=== PATIENT | female | born 1965 | race Two or more races ===

== ENCOUNTER 2024-05-22 16:42 | Emergency (ER) | payer BC, OTHER ==
[~2024-05-22] VITALS: Ht 165.1 cm; Wt 73.0 kg
[2024-05-22 17:30] LABS: Basophils # (auto) 0 10 ^3/uL (0-0.2); Basophils % (auto) 0.4 % (0.0-2.0); Eosinophils # (auto) 0.1 10 ^3/uL (0-0.8); Hematocrit 51.3 % (36.0-46.0); Hemoglobin 17.5 g/dL (12.2-16.2); Lymphocytes # (auto) 3.9 10 ^3/uL (0.4-5.4); Lymphocytes % (auto) 32.1 % (10.0-50.0); Mean Corpuscular Hemoglobin 30.1 pg (28.0-32.0); Mean Corpuscular Volume 88.5 fL (80.0-100.0); Monocytes % (auto) 8.4 % (0.0-12.0); Neutrophils % (auto) 58.1 % (37.0-80.0); Nucleated Red Blood Cells % 0.1 %; Platelet Count (auto) 375 10^3/uL (140-450); Red Cell Distribution Width 13.5 % (11.8-14.3); White Blood Cell 12.1 10^3/uL (4.4-10.8)
[2024-05-22 17:49] LABS: Alanine Aminotransferase 58 U/L (7-40); Albumin 5.3 g/dL (3.2-4.8); Alkaline Phosphatase 111 U/L (46-116); Anion Gap 12 (5-15); Aspartate Aminotransferase 23 U/L (13-40); BUN/Creatinine Ratio 17.4 (10.0-20.0); Bilirubin, Total 0.8 mg/dL (0.2-1.0); Blood Urea Nitrogen 12 mg/dL (9-23); Calcium 10.8 mg/dL (8.7-10.4); Carbon Dioxide 21 mmol/L (20-31); Chloride 107 mmol/L (98-107); Glucose 93 mg/dL (74-106); Potassium 3.5 mmol/L (3.5-5.1); Sodium 140 mmol/L (136-145); Total Protein 8.1 g/dL (5.7-8.2)
[2024-05-22 18:35] LABS: Urine Bacteria FEW /hpf (None Seen); Urine Blood 1+ /uL (Negative); Urine Budding Yeast FEW /hpf (None Seen); Urine Clarity Turbid (Clear); Urine Color Light-Yellow (Yellow); Urine Mucus FEW (None Seen); Urine Protein, UAD 1+ (Negative); Urine Specific Gravity 1.012 (1.001-1.035); Urine Urobilinogen Normal (Negative); Urine WBC 114 /hpf (0 - 5); Urine pH 5.5 (5.0-9.0)
[2024-05-22] MEDS ORDERED: IBU600T PO (19:31)
[2024-05-22] MEDS ORDERED: ALPR0.25 PO (19:31)
[2024-05-22] MEDS: ASPirin 325 MG TAB PO ONE (19:32)
[2024-05-22] MEDS: cloNIDine HCL 0.1 MG TAB PO ONE (19:32)
[2024-05-22] MEDS: CEPHALEXIN 250 MG CAP PO ONE (19:37)
[2024-05-22 20:36] VITALS: BP 122/83; PULSE 108; RESP 18; TEMP 98.5; O2SAT 97
== END 2024-05-22 20:38 | disposition home or self-care (01) ==
LOC: ER 16:42
DX: R07.89 Other chest pain (principal); I10 Essential (primary) hypertension; E78.00 Pure hypercholesterolemia, unspecified; F41.9 Anxiety disorder, unspecified; Z88.0 Allergy status to penicillin; Z88.1 Allergy status to other antibiotic agents
CPT/HCPCS: 36415; 71045; 80053; 81001; 84484; 85025; 93005

== ENCOUNTER 2024-07-27 10:42 | Emergency (ER) | payer BC ==
[~2024-07-27] VITALS: Ht 165.1 cm; Wt 72.0 kg
[~2024-07-27 10:42] MED LIST: ALPR0.25 PO; IBU600T PO
[2024-07-27 11:11] LABS: Basophils # (auto) 0 10 ^3/uL (0-0.2); Basophils % (auto) 0.4 % (0.0-2.0); Eosinophils # (auto) 0.1 10 ^3/uL (0-0.8); Eosinophils % (auto) 1.3 % (0.0-7.0); Hematocrit 47.4 % (36.0-46.0); Lymphocytes # (auto) 3.1 10 ^3/uL (0.4-5.4); Lymphocytes % (auto) 29.8 % (10.0-50.0); Mean Corpuscular Hemoglobin 29.9 pg (28.0-32.0); Mean Corpuscular Hgb Conc. 33.8 g/dL (32.0-36.0); Mean Corpuscular Volume 88.5 fL (80.0-100.0); Monocytes # (auto) 0.9 10 ^3/uL (0-1.3); Monocytes % (auto) 8.4 % (0.0-12.0); Neutrophils # (auto) 6.2 10 ^3/uL (1.6-8.6); Neutrophils % (auto) 60.1 % (37.0-80.0); Nucleated Red Blood Cells % 0.4 %; Platelet Count (auto) 432 10^3/uL (140-450); Red Blood Cells 5.35 10^6/uL (4.0-5.20); Red Cell Distribution Width 13.4 % (11.8-14.3); White Blood Cell 10.4 10^3/uL (4.4-10.8)
[2024-07-27] MEDS: ASPirin 81 mg TAB PO ONE (11:17)
[2024-07-27] MEDS: SODIUM CHLORIDE 0.9% 1,000 ML IV ONE (11:25)
[2024-07-27 11:32] LABS: Alanine Aminotransferase 35 U/L (7-40); Albumin 4.8 g/dL (3.2-4.8); Alkaline Phosphatase 100 U/L (46-116); Anion Gap 7 (5-15); Aspartate Aminotransferase 24 U/L (13-40); BUN/Creatinine Ratio 19.5 (10.0-20.0); Blood Urea Nitrogen 15 mg/dL (9-23); Calcium 10.3 mg/dL (8.7-10.4); Carbon Dioxide 26 mmol/L (20-31); Chloride 105 mmol/L (98-107); Glucose 104 mg/dL (74-106); Potassium 3.7 mmol/L (3.5-5.1); Sodium 138 mmol/L (136-145); Total Protein 7.4 g/dL (5.7-8.2)
[2024-07-27 11:34] LABS: INR 1.05 (0.9-1.15); Partial Thromboplastin Time 29.3 SEC (24.5-34.5); Prothrombin Time 11.1 sec (9.3-11.8)
--- NOTE | 2024-07-27 11:39 | DVH ---
XY CHEST TWO VIEWS ROUTINE CLINICAL HISTORY: cp COMPARISON: None TECHNIQUE: Frontal and lateral view of the chest was obtained FINDINGS: Lines and Tubes: None Lungs: No focal consolidation. Pleura: No effusion. No pneumothorax. Cardiomediastinal contours: Unremarkable Bones: No acute osseous abnormality. IMPRESSION: No acute cardiopulmonary disease.
[2024-07-27 11:48] LABS: Urine Bacteria FEW /hpf (None Seen); Urine Blood 1+ /uL (Negative); Urine Clarity Ex.Turbid (Clear); Urine Color Light-Brown (Yellow); Urine Mucus FEW (None Seen); Urine Protein, UAD 1+ (Negative); Urine Specific Gravity 1.014 (1.001-1.035); Urine Urobilinogen Normal (Negative); Urine WBC 780 /hpf (0 - 5); Urine WBC Clumps PRESENT /hpf (None Seen); Urine pH 5.5 (5.0-9.0)
--- NOTE | 2024-07-27 12:15 | ECG ---
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
--- NOTE | 2024-07-27 12:15 | ECG ---
[facility] Test Date: 2024-07-27 Test Time: 10:47:39 Pat Name: SHELDON OAKLEY Department: ER Room: Gender: F Laminator Preforms: IG : 1965 Requested By: ROSEMARIE HOLDEN Order Number: [id number] Reading MD: Tristin Weems Measurements Intervals [place] Rate: 74 P: 0 [place]: 0 QRS: -34 QRSD: 95 T: 43 QT: 389 QTc: 432 Interpretive Statements Atrial fibrillation Abnormal R-wave progression, early transition Left ventricular hypertrophy Electronically Signed On 07-29-2024 12:44:16 PST by Tristin Weems Please click the below link to view image of tracing.
[2024-07-27] MEDS: cloNIDine HCL 0.1 MG TAB PO ONE (13:53)
--- NOTE | 2024-07-27 15:08 | ED.PDOC ---
History of Present Illness HPI Comments 59 y/o F, with a Hx of MO, HLD, HTN, and daily ASA use, presents with c/o left- sided chest, shoulder, upper back, and neck pain, today. Patient endorses on having symptoms, intermittently, for "awhile," with current onset taking place, this morning, at around 0800. Patient denies having any nausea, vomiting, shortness of breath, dizziness, fever, chills, or other associated symptoms or modifiers at this time. Chief Complaint: Chest Pain Time Seen by MD: 13:00 Primary Care Provider: DAMIAN Reviewed Notes: Nurses Notes, Medications, Allergies Allergies: Coded Allergies: Azithromycin (Verified Allergy, Unknown, 05/22/24) Penicillins (Verified Allergy, Unknown, 05/22/24) Home Meds Active Scripts Alprazolam (Xanax) 0.25 Mg Tb, 1 TAB PO DAILY PRN for 3 Days, #3 TAB Prov:DIANE SOMERS MD 05/22/24 Ibuprofen Micronized (MOTRIN TABLET) 600 Mg Tb, 600 MG PO TID PRN, #40 TAB *Black box warning-NSAIDS can increase risk of MO & hypertension, GI irritation, ulceration, bleed, perferation. Do not use post cardiac surgery. Use short duration/lowest effective dose. Prov:DIANE SOMERS MD 05/22/24 Information Source: Patient Mode of Arrival: Ambulatory Timing: Hours Duration: Since onset Prehospital treatment: None Past Medical History PAST MEDICAL HISTORY: High Lipids, HTN, MO Surgical History: Denies all surgeries LAUNCH LEADER History: No Pertinent LAUNCH LEADER History Family History Family History: Reviewed,noncontributory to illness, Unknown Social History Smoker: Non-Smoker Alcohol: Denies ETOH Use Drugs: Denies Drug Use Lives In: Home Respiratory: reports: shortness of breath Cardiovascular: reports: chest pain Musculoskeletal: reports: back pain (upper back ), joint pain (left shoulder pain ) Psychiatric: reports: anxiety All Other Systems: Reviewed and Negative (negative unless otherwise stated above or in HPI) Physical Exam General Appearance: Mild Distress, Moderate Distress, Normal HEENT: Normal ENT Inspection, PERRL/EOMI Neck: Full Range of Motion, Non-Tender, Normal, Normal Inspection Respiratory: Chest Non-Tender, Lungs Clear, No Accessory Muscle Use, No Respiratory Distress, Normal Breath Sounds Cardiovascular: No Edema, No JVD, No Murmur, No Gallop, Normal Peripheral Pulses, Regular Rate/Rhythm, Other (Chest been going to the left shoulder neck and back pain) Breast Exam: Deferred Gastrointestinal: No Organomegaly, Non Tender, No Pulsatile Mass, Normal Bowel Sounds, Soft Genitalia: Deferred Pelvic: Deferred Rectal: Deferred Extremities: No calf tenderness, Normal capillary refill, Normal inspection, Normal range of motion, Non-tender, No pedal edema Neurologic: Alert, tray drier II-XII nml as Tested, No Motor Deficits, Normal Affect, Normal Mood, No Sensory Deficits Cerebellar Function: Normal Reflexes: Normal Skin: Dry, Normal Color, Warm Peripheral Pulses: 1+ carotid (R), 1+ carotid (L) Lymphatic: No Adenopathy Was a procedure done? Was a procedure done?: No EKG EKG : Pulse Rate (adult): 71 [place]: Normal Cardiac Rhythm: NSR Block: None Hypertrophy: None ST: Normal Differential Dx Considerations may include: MO, ACS, costochondritis, pericarditis, PE, PNA uncontrolled hypertension UTI X-Ray, Labs, Meds, VS Vital Signs Date Time Temp Pulse Resp B/P (MAP) Pulse Ox O2 Delivery O2 Flow Rate FiO2 07/27/24 15:08 71 07/27/24 13:53 146/87 07/27/24 13:47 98.2 81 15 146/87 (106) 97 98.2 07/27/24 11:40 71 07/27/24 11:17 72 18 96 Room Air 07/27/24 11:17 72 18 161/88 (112) 96 07/27/24 10:50 98.0 69 18 186/96 (126) 100 07/27/24 10:47 74 Lab Test 07/27/24 11:35 07/27/24 11:23 07/27/24 10:54 07/27/24 10:50 Range/Units Troponin I High Sensitivity < 3 L < 3 L </=34 ng/L Urine Color Light-brown Yellow Urine Clarity Ex.turbid Clear Urine pH 5.5 5.0-9.0 Urine Specific [place] 1.014 1.001-1.035 Urine Protein 1+ H Negative Urine Ketones Negative Negative Urine Blood 1+ H Negative /uL Urine Nitrite Negative Negative Urine Bilirubin Negative Negative Urine Urobilinogen Normal Negative mg/dL Urine Leukocyte Esterase 3+ Negative /uL Urine RBC 71 0 - 4 /hpf Urine WBC 780 0 - 5 /hpf Urine WBC Clumps Present None Seen /hpf Urine Squamous Epithelial Cells Many <5 /hpf Urine Transitional Epithelial Cells Few <2 /hpf Urine Bacteria Few H None Seen /hpf Urine Mucus Few None Seen Urine Glucose Normal Normal mg/dL POC Glucose 101 70-106 mg/dl White Blood Count 10.4 4.4-10.8 10^3/uL Red Blood Count 5.35 H 4.0-5.20 10^6/uL Hemoglobin 16.0 12.2-16.2 g/dL Hematocrit 47.4 H 36.0-46.0 % Mean Corpuscular Volume 88.5 80.0-100.0 fL Mean Corpuscular Hemoglobin 29.9 28.0-32.0 pg Mean Corpuscular Hemoglobin Concent 33.8 32.0-36.0 g/dL Red Cell Distribution Width 13.4 11.8-14.3 % Platelet Count 432 140-450 10^3/uL Mean Platelet Volume 7.9 6.9-10.8 fL Neutrophils (%) (Auto) 60.1 37.0-80.0 % Lymphocytes (%) (Auto) 29.8 10.0-50.0 % Monocytes (%) (Auto) 8.4 0.0-12.0 % Eosinophils (%) (Auto) 1.3 0.0-7.0 % Basophils (%) (Auto) 0.4 0.0-2.0 % Neutrophils # (Auto) 6.2 1.6-8.6 10 ^3/uL Lymphocytes # (Auto) 3.1 0.4-5.4 10 ^3/uL Monocytes # (Auto) 0.9 0-1.3 10 ^3/uL Eosinophils # (Auto) 0.1 0-0.8 10 ^3/uL Basophils # (Auto) 0 0-0.2 10 ^3/uL Nucleated Red Blood Cells 0.4 % Prothrombin Time 11.1 9.3-11.8 sec Prothrombin Time INR 1.05 0.9-1.15 Activated Partial Thromboplast Time 29.3 24.5-34.5 SEC Sodium Level 138 136-145 mmol/L Potassium Level 3.7 3.5-5.1 mmol/L Chloride Level 105 98-107 mmol/L Carbon Dioxide Level 26 20-31 mmol/L Anion Gap 7 5-15 Blood Urea Nitrogen 15 9-23 mg/dL Creatinine 0.77 0.550-1.02 mg/dL Glomerular Filtration Rate Calc 88 >90 mL/min BUN/Creatinine Ratio 19.5 10.0-20.0 Serum Glucose 104 74-106 mg/dL Calcium Level 10.3 8.7-10.4 mg/dL Magnesium Level 2.1 1.6-2.6 mg/dL Total Bilirubin 1.0 0.2-1.0 mg/dL Aspartate Amino Transferase (AST) 24 13-40 U/L Alanine Aminotransferase (ALT) 35 7-40 U/L Alkaline Phosphatase 100 46-116 U/L Total Protein 7.4 5.7-8.2 g/dL Albumin 4.8 3.2-4.8 g/dL Current Medications Medications (Trade) Dose Ordered Sig/Mi Route Start Time Stop Time Status Last Admin Aspirin 162 mg ONCE ONCE PO 07/27/24 11:15 07/27/24 11:16 DC 07/27/24 11:17 [place] [id number] Ph: [phone] DIAGNOSTIC IMAGING Diagnostic Imaging Report : [id number] Signed PATIENT: SHELDON OAKLEY ACCT: [id number] UNIT: [id number] : 1965 LOC: ER ROOM / BED: / AGE / SEX: 59 / F ADM STATUS: REG ER SERVICE 1106 ORDERING PHYSICIAN: ROSEMARIE HOLDEN MD PROCEDURE(s): CXR2 - CHEST TWO VIEWS ROUTINE REASON: cp ORDER NUMBER(s): [id number], ACCESSION NUMBER(s): [id number] XY CHEST TWO VIEWS ROUTINE CLINICAL HISTORY: cp COMPARISON: None TECHNIQUE: Frontal and lateral view of the chest was obtained FINDINGS: Lines and Tubes: None Lungs: No focal consolidation. Pleura: No effusion. No pneumothorax. Cardiomediastinal contours: Unremarkable Bones: No acute osseous abnormality. IMPRESSION: No acute cardiopulmonary disease. ATED BY: ERIC FISH MD DICTATED DATE/TIME: 07/27/24 [id number] SIGNED BY: ERIC FISH MD SIGNED DATE/TIME: 07/27/247 CC: X-Ray, Labs, Meds, VS Comment Course in the emergency department eventful patient came in complaining of chest pain no shortness of breath not feeling cold somewhat dizzy Blood pressure 186/96 Chest x-ray normal EKG shows normal sinus rhythm at 74 with left ventricular hypertrophy CBC normal CMP negative Troponin three and three Glucose 101 INR 1.05 Magnesium 2.1 Urine shows 1+ protein 1+ blood 3+ leukocyte esterase with a positive clumps and bacteria Patient will be discharged home to follow up with her PCP Time of 1ST Reevaluation: 13:30 Reevaluation 1ST: Unchanged Patient Education/Counseling: Diagnosis, Treatment Family Education/Counseling: No Family Present Departure 1 Departure Time of Disposition: 15:32 Impression: Primary Impression: Uncontrolled hypertension Additional Impressions: Musculoskeletal chest pain UTI (urinary tract infection) Ruled Out: Pneumonia Disposition: 01 HOME / SELF CARE / HOMELESS Condition: Fair Additional Instructions: Push fluids and follow up with your PCP and 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 e-Prescriptions Naproxen Sodium (ALEVE ARTHRITIS) 220 Mg Tab 220 MG PO BID for 10 Days, #20 TAB Prov: ROSEMARIE HOLDEN MD 07/27/24 Olmesartan Medoxomil (Olmesartan Medoxomil) 40 Mg Tab 20 MG PO DAILY for 30 Days, #30 TAB Prov: ROSEMARIE HOLDEN MD 07/27/24 Ciprofloxacin Hcl (Cipro) 500 Mg Tab 1 TAB PO BID for 10 Days, #20 TAB Prov: ROSEMARIE HOLDEN MD 07/27/24 Discharged With: Self Critical Care Note Critical Care Time?: No Stability Stability form required: No Heart Score Heart Score: Heart Score Response (Comments) Value History Slightly Suspicious 0 EKG Normal 0 Age 45-64 1 Risk Factors 1 or 2 risk factors 1 Troponin Normal limit 0 Total 2 I personally scribed for ROSEMARIE HOLDEN MD ([email or web address]) on 07/27/24 at 15:08. Electronically submitted by Felipe Silverio ([email or web address]). ROSEMARIE HOLDEN MD Jul 27, 2024 15:08
[2024-07-27] MEDS ORDERED: CIPR-173 PO (15:35)
[2024-07-27] MEDS ORDERED: OLME40TA76 PO (15:35)
[2024-07-27] MEDS ORDERED: NAPR-759 PO (15:35)
[2024-07-27 15:43] VITALS: BP 142/72; PULSE 82; RESP 18; TEMP 98.1; O2SAT 97
== END 2024-07-27 15:43 | disposition home or self-care (01) ==
LOC: ER 10:42
DX: I10 Essential (primary) hypertension (principal); R07.89 Other chest pain; M25.512 Pain in left shoulder; M54.2 Cervicalgia; E78.5 Hyperlipidemia, unspecified; I25.2 Old myocardial infarction; I48.91 Unspecified atrial fibrillation; N39.0 Urinary tract infection, site not specified; Z88.0 Allergy status to penicillin; Z88.1 Allergy status to other antibiotic agents
CPT/HCPCS: 36415; 71046; 80053; 81001; 82962; 83735; 84484; 85025; 85610; 85730; 93005

== ENCOUNTER 2024-08-09 11:28 | Inpatient (IN) | payer BC ==
[~2024-08-09] VITALS: Ht 165.1 cm; Wt 76.4 kg
[~2024-08-09 11:28] MED LIST changes: +ALEN70TA74 PO; +CIPR-173 PO; +NAPR-759 PO; +OLME40TA76 PO
--- NOTE | 2024-08-09 11:55 | ED.PDOC ---
History of Present Illness HPI Comments 59Y F with PMHx HTN, HLD, and VT presents to ED for chief complaint lt sided facial numbness that radiates to lt arm. Additional symptoms include chest pain, headache, and nausea. Pt's chest pain is located on left lower area and is non- radiating. Pt describes the chest pain as pressure. Pt describes the headache as throbbing. Per pt, she has been experiencing these symptoms intermittently for 6 months. 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 Pt states they found abnormal results on stress test but is not sure what abnormalities they are. Pt has been told she needs an angiogram. Chief Complaint: Left Sided Weakness Time Seen by MD: 11:40 Primary Care Provider: DAMIAN Hall Notes: Medications, Allergies Allergies: Coded Allergies: Azithromycin (Verified Allergy, Unknown, 05/22/24) Penicillins (Verified Allergy, Unknown, 05/22/24) Home Meds Active Scripts Naproxen Sodium (ALEVE ARTHRITIS) 220 Mg Tab, 220 MG PO BID for 10 Days, #20 TAB Prov:ROSEMARIE HOLDEN MD 07/27/24 Olmesartan Medoxomil (Olmesartan Medoxomil) 40 Mg Tab, 20 MG PO DAILY for 30 Days, #30 TAB Prov:ROSEMARIE HOLDEN MD 07/27/24 Ciprofloxacin Hcl (Cipro) 500 Mg Tab, 1 TAB PO BID for 10 Days, #20 TAB Prov:ROSEMARIE HOLDEN MD 07/27/24 Alprazolam (Xanax) 0.25 Mg Tb, 1 TAB PO DAILY PRN for 3 Days, #3 TAB Prov:DIANE SOMERS MD 05/22/24 Ibuprofen Micronized (MOTRIN TABLET) 600 Mg Tb, 600 MG PO TID PRN, #40 TAB *Black box warning-NSAIDS can increase risk of VT & hypertension, GI irritation, ulceration, bleed, perferation. Do not use post cardiac surgery. Use short duration/lowest effective dose. Prov:DIANE SOMERS MD 05/22/24 Information Source: Patient Mode of Arrival: Ambulatory Severity: Mild Timing: Months Duration: Intermittent Past Medical History PAST MEDICAL HISTORY: High Lipids, HTN, VT Surgical History: Hysterectomy, Tonsillectomy SALES REPRESENTATIVE DOOR TO DOOR History: No Pertinent SALES REPRESENTATIVE DOOR TO DOOR History Family History Family History: Reviewed,noncontributory to illness, Unknown Social History Smoker: Non-Smoker Alcohol: Denies ETOH Use Drugs: Denies Drug Use Lives In: Home Constitutional: denies: chills, diaphoresis, fatigue, fever, malaise, sweats, weakness, others EENTM: denies: blurred vision, double vision, ear bleeding, ear discharge, ear drainage, ear pain, ear ringing, eye pain, eye redness, hearing loss, mouth pain, mouth swelling, nasal discharge, nose bleeding, nose congestion, nose pain, photophobia, tearing, throat pain, throat swelling, voice changes, others Respiratory: denies: cough, hemoptysis, orthopnea, SOB at rest, shortness of breath, SOB with excertion, stridor, wheezing, others Cardiovascular: reports: chest pain; denies: dizzy spells, diaphoresis, Dyspnea on exertion, edema, irregular heart beat, left arm pain, lightheadedness, palpitations, PND, syncope, others Gastrointestinal: reports: nausea; denies: abdomen distended, abdominal pain, blood streaked bowels, constipated, diarrhea, dysphagia, difficulty swallowing, hematemesis, melena, poor appetite, poor fluid intake, rectal bleeding, rectal pain, vomiting, others Genitourinary: denies: abnormal vagina bleeding, burning, dyspareunia, dysuria, flank pain, frequency, hematuria, incontinence, pain, , vagina discharge, urgency, others Neurological: reports: headache, left sided numbness; denies: dizziness, fainting, left sided weakness, numbness, paresthesia, pre-existing deficit, right sided numbness, right sided weakness, seizure, speech problems, tingling, tremors, weakness, others Musculoskeletal: denies: back pain, gout, joint pain, joint swelling, muscle pain, muscle stiffness, neck pain, others Integumetry: denies: bruises, change in color, change in hair/nails, dryness, laceration, lesions, lumps, rash, wounds, others Allergic/Immunocompromised: denies: Difficulty Healing, Frequent Infections, Hives, Itching, others Hematologic/Lymphatic: denies: anemia, blood clots, easy bleeding, easy bruising, swollen glands, others Endocrine: denies: excessive hunger, excessive sweating, excessive thirst, excessive urination, flushing, intolerance to cold, intolerance to heat, unexplained weight gain, unexplained weight loss, others Psychiatric: reports: anxiety; denies: bipolar disorder, depression, hopeless, panic disorder, schizophrenia, sleepless, suicidal, others All Other Systems: Reviewed and Negative Physical Exam General Appearance: Moderate Distress, Normal HEENT: Normal ENT Inspection, Pharynx Normal, TMs Normal Neck: Full Range of Motion, Non-Tender, Normal, Normal Inspection Respiratory: Chest Non-Tender, Lungs Clear, No Accessory Muscle Use, No Respiratory Distress, Normal Breath Sounds Cardiovascular: No Edema, No JVD, No Murmur, No Gallop, Normal Peripheral Pulses, Regular Rate/Rhythm Breast Exam: Deferred Gastrointestinal: No Organomegaly, Non Tender, No Pulsatile Mass, Normal Bowel Sounds, Soft Genitalia: Deferred Pelvic: Deferred Rectal: Deferred Extremities: No calf tenderness, Normal capillary refill, Normal inspection, Normal range of motion, Non-tender, No pedal edema Musculoskeletal : Apperance: Normal Neurologic: Alert, breaker engineer II-XII nml as Tested, No Motor Deficits, Normal Affect, Normal Mood, No Sensory Deficits Cerebellar Function: Normal Reflexes: Normal Skin: Dry, Normal Color, Warm Peripheral Pulses: 3+ Radial (R), 3+ Radial (L) Lymphatic: No Adenopathy Was a procedure done? Was a procedure done?: No Differential Dx Considerations may include: Coronary artery disease Electrolyte imbalance X-Ray, Labs, Meds, VS Vital Signs Date Time Temp Pulse Resp B/P (MAP) Pulse Ox O2 Delivery O2 Flow Rate FiO2 08/09/24 13:28 97.8 86 16 98/75 (83) 97 97.8 08/09/24 11:30 98.0 82 18 161/81 (107) 98 Lab Test 08/09/24 12:37 08/09/24 11:46 Range/Units White Blood Count 8.1 4.4-10.8 10^3/uL Red Blood Count 5.06 4.0-5.20 10^6/uL Hemoglobin 15.4 12.2-16.2 g/dL Hematocrit 45.3 36.0-46.0 % Mean Corpuscular Volume 89.6 80.0-100.0 fL Mean Corpuscular Hemoglobin 30.4 28.0-32.0 pg Mean Corpuscular Hemoglobin Concent 34.0 32.0-36.0 g/dL Red Cell Distribution Width 13.5 11.8-14.3 % Platelet Count 338 140-450 10^3/uL Mean Platelet Volume 7.9 6.9-10.8 fL Neutrophils (%) (Auto) 55.9 37.0-80.0 % Lymphocytes (%) (Auto) 32.3 10.0-50.0 % Monocytes (%) (Auto) 9.2 0.0-12.0 % Eosinophils (%) (Auto) 1.9 0.0-7.0 % Basophils (%) (Auto) 0.7 0.0-2.0 % Neutrophils # (Auto) 4.5 1.6-8.6 10 ^3/uL Lymphocytes # (Auto) 2.6 0.4-5.4 10 ^3/uL Monocytes # (Auto) 0.7 0-1.3 10 ^3/uL Eosinophils # (Auto) 0.2 0-0.8 10 ^3/uL Basophils # (Auto) 0.1 0-0.2 10 ^3/uL Nucleated Red Blood Cells 0.0 % Sodium Level 141 136-145 mmol/L Potassium Level 4.3 3.5-5.1 mmol/L Chloride Level 109 H 98-107 mmol/L Carbon Dioxide Level 25 20-31 mmol/L Anion Gap 7 5-15 Blood Urea Nitrogen 10 9-23 mg/dL Creatinine 0.72 0.550-1.02 mg/dL Glomerular Filtration Rate Calc 95 >90 mL/min BUN/Creatinine Ratio 13.9 10.0-20.0 Serum Glucose 116 H 74-106 mg/dL Calcium Level 10.1 8.7-10.4 mg/dL Troponin I High Sensitivity < 3 L </=34 ng/L Urine Color Colorless Yellow Urine Clarity Turbid H Clear Urine pH 5.5 5.0-9.0 Urine Specific [facility] 1.003 1.001-1.035 Urine Protein Negative Negative Urine Ketones Negative Negative Urine Blood Negative Negative /uL Urine Nitrite Negative Negative Urine Bilirubin Negative Negative Urine Urobilinogen Normal Negative mg/dL Urine Leukocyte Esterase 3+ Negative /uL Urine RBC 2 0 - 4 /hpf Urine WBC 14 0 - 5 /hpf Urine Squamous Epithelial Cells Few <5 /hpf Urine Bacteria Few H None Seen /hpf Urine Glucose Normal Normal mg/dL Patient alert. Complaining of chest pain. States that she has numbness of the right side. Vitals stable. Examination good muscle strength in all extremities. No sign of TIA. No sign of stroke. EKG reviewed does show chronic changes. Cardiac marker within normal limits. She will need stress test or an angiogram. UA shows UTI. Was given Bactrim. Was given aspirin. Cardiology consultation. Reviewed her previous visit pain Explained to the patient. Continue cardiac monitoring. WBC within normal limits. Hemoglobin within normal limits. Time of 1ST Reevaluation: 12:10 Reevaluation 1ST: Unchanged Patient Education/Counseling: Diagnosis, Treatment Family Education/Counseling: No Family Present Additional Information I reviewed the following notes from patient's past medical encounters: [facility] 07/27/2024 and 05/22/2024 The following tests were ordered, and results were reviewed by me: CBC, BMP, Troponin, UA I discussed treatment and results with medical personnel. Departure 1 Departure Time of Disposition: 15:05 Impression: Primary Impression: Chest pain of unknown etiology Additional Impression: Uncontrolled hypertension Disposition: ADMITTED INPATIENT Admit to: Med Surg Condition: Guarded Critical Care Note Critical Care Time?: Yes (45 min-critical care time only) Stability Stability form required: No Heart Score Heart Score: Heart Score Response (Comments) Value History N/A 0 EKG N/A 0 Age 45-64 1 Risk Factors 1 or 2 risk factors 1 Troponin Normal limit 0 Total 2 I personally scribed for CRISÓTBAL VALENTIN MD ([email or web address]) on 08/09/24 at 11:55. Electronically submitted by Petra Ortega ([email or web address]). CRISTÓBAL VALENTIN MD Aug 09, 2024 11:55
[2024-08-09 12:15] LABS: Urine Bacteria FEW /hpf (None Seen); Urine Blood Negative /uL (Negative); Urine Clarity Turbid (Clear); Urine Color Colorless (Yellow); Urine Protein, UAD Negative (Negative); Urine Specific Gravity 1.003 (1.001-1.035); Urine Urobilinogen Normal (Negative); Urine WBC 14 /hpf (0 - 5); Urine pH 5.5 (5.0-9.0)
[2024-08-09 12:56] LABS: Basophils # (auto) 0.1 10 ^3/uL (0-0.2); Basophils % (auto) 0.7 % (0.0-2.0); Eosinophils # (auto) 0.2 10 ^3/uL (0-0.8); Eosinophils % (auto) 1.9 % (0.0-7.0); Hematocrit 45.3 % (36.0-46.0); Hemoglobin 15.4 g/dL (12.2-16.2); Lymphocytes # (auto) 2.6 10 ^3/uL (0.4-5.4); Lymphocytes % (auto) 32.3 % (10.0-50.0); Mean Corpuscular Hemoglobin 30.4 pg (28.0-32.0); Mean Corpuscular Volume 89.6 fL (80.0-100.0); Monocytes # (auto) 0.7 10 ^3/uL (0-1.3); Monocytes % (auto) 9.2 % (0.0-12.0); Neutrophils # (auto) 4.5 10 ^3/uL (1.6-8.6); Neutrophils % (auto) 55.9 % (37.0-80.0); Platelet Count (auto) 338 10^3/uL (140-450); Red Blood Cells 5.06 10^6/uL (4.0-5.20); Red Cell Distribution Width 13.5 % (11.8-14.3); White Blood Cell 8.1 10^3/uL (4.4-10.8)
[2024-08-09 12:57] LABS: Potassium 4.3 mmol/L (3.5-5.1); Sodium 141 mmol/L (136-145)
[2024-08-09 12:58] LABS: Anion Gap 7 (5-15); Calcium 10.1 mg/dL (8.7-10.4); Carbon Dioxide 25 mmol/L (20-31)
[2024-08-09 12:59] LABS: Chloride 109 mmol/L (98-107)
[2024-08-09 13:03] LABS: BUN/Creatinine Ratio 13.9 (10.0-20.0); Blood Urea Nitrogen 10 mg/dL (9-23)
[2024-08-09 13:04] LABS: Glucose 116 mg/dL (74-106)
--- NOTE | 2024-08-09 23:25 | DVH ---
EXAM: XY CHEST XRAY 1 VIEW CLINICAL HISTORY: chest pain TECHNIQUE: Single AP view of the chest WID: COMPARISON: XY CHEST PORTABLE on DOS: 05/22/24 FINDINGS: Lines and tubes: None Chest: The heart size and pulmonary vasculature is within normal limits. Calcified plaque projects over the thoracic aorta. No pleural effusion, pneumothorax, or consolidation. Linear scarring in the bilateral lung bases. The osseous structures are grossly intact. Multilevel thoracic spondylosis. IMPRESSION: No acute cardiopulmonary abnormality.
[2024-08-10] VITALS (9 sets, daily range): BP systolic 125–160; BP diastolic 63–86; PULSE 62–85; RESP 16–18; TEMP 97.4–98.1; O2SAT 93–98
[2024-08-10] MEDS ORDERED: hydrALAZINE HCL 20 MG/ML VL IV PRN ×2 (01:00→04:15)
[2024-08-10] MEDS: ASPirin 325 MG TAB PO ONE (01:04)
[2024-08-10] MEDS: ATORVASTATIN 20 MG TAB PO ONE (01:04)
[2024-08-10] MEDS: CLOPIDOGREL BISULFATE 75 MG TAB PO ONE (01:04)
[2024-08-10 04:09] LABS: COVID19 ANTIGEN SOFIA FIA NEGATIVE (NEGATIVE)
[2024-08-10 04:10] LABS: Rapid Influenza A Negative (Negative); Rapid Influenza B Negative (Negative)
[2024-08-10] MEDS ORDERED: ASPI1TAB20 PO (04:35)
[2024-08-10] MEDS ORDERED: SIMV20TA20 PO (04:35)
[2024-08-10] MEDS ORDERED: LOS25T PO (04:35)
[2024-08-10] MEDS ORDERED: MET50T PO (04:35)
[2024-08-10] MEDS ORDERED: CALC-473 (04:35)
--- NOTE | 2024-08-10 05:36 | DVH ---
EXAM: CT HEAD WITHOUT CONTRAST INDICATION: numbness TECHNIQUE: CT of the head without intravenous contrast. Radiation Dose : 1. Head: CT Dose: CTDI volume is 51.8 mGy. Dose-length product is 830.52 mGy*cm The dose indicators for CT are the volume Computed Tomography (CT) Dose Index (CTDIvol) and the Dose Length Product (DLP), and are measured in units of mGy and mGy-cm, respectively. These indicators are not patient dose, but values generated from the CT scanner acquisition factors. The report includes radiation exposure data for exposures received during this examination. COMPARISON: None FINDINGS: There is no evidence of acute intracranial hemorrhage, extra-axial collection, mass effect, midline s hift, herniation or hydrocephalus. The ventricles, sulci and cisterns are age appropriate. The schaefer-white differentiation is intact. The visualized paranasal sinuses and mastoid air cells are clear. The surrounding soft tissues and osseous structures are unremarkable. IMPRESSION: No acute intracranial abnormality. Radiation optimization: All CT scans at this facility use at least one of these dose optimization [place] hniques: automated exposure control mA and/or kV adjustment per patient size (includes targeted exam s where dose is matched to clinical indication) or iterative reconstruction.
--- NOTE | 2024-08-10 06:17 | DVHHPRES ---
History of Present Illness Resident Creating Document: SANIYATIMOTHYILIANACONSTANTINO RESIDENT History of Present Illness Patient is a 59-year-old female with a past medical history as described below came to the ED after she had chest pain early in the morning. Patient reports that she was at rest when she has felt left upper chest pain, nonradiating, 7/10 on intensity, with the associated palpitations, no association with deep breathing or movement, no shortness of breath, no abdominal pain, no sweating. Patient reports that she has had similar pain before and was evaluated by hair or beauty salon manager Dr. Disla who performed a stress test in June and the result reportedly showed some changes and the patient is due for a coronary angiogram 2 months. Patient also reported associated left-sided facial numbness when she had the chest pain which radiated down to the left upper arm and the shoulder. Patient denied recent flu-like illness, contacts, travel. Patient also reports that she has anxiety since the time the stress test was done and the results showed some changes. Reports sometimes at night she wakes up out of and has palpitations and checks her blood pressure repeatedly. Past medical history: Hypertension, hyperlipidemia, anxiety Past surgical history: Hysterectomy, tonsillectomy Social history: Patient lives with and denies smoking, alcohol, drug use Home medications: Aspirin 81 mg, metoprolol tartrate 50 mg b.i.d., simvastatin 20 mg, alendronate 70, losartan 25 mg Review of Systems Review of Systems Patient seen and examined at bedside Denies chest pain, shortness of breath, palpitations at the time Patient reports that she is feeling mildly anxious about her current condition. Allergies: Coded Allergies: Azithromycin (Verified Allergy, Unknown, 05/22/24) Penicillins (Verified Allergy, Unknown, 05/22/24) Medications Current Medications Medications Dose Ordered Sig/Mi Route Start Time Stop Time Status Last Admin Dose Admin Metoprolol Tartrate 50 mg BID PO 08/10/24 10:00 Hydralazine HCl 10 mg Q6HP PRN IV 08/10/24 04:15 Aspirin 81 mg DAILY PO 08/10/24 10:00 Atorvastatin Calcium 40 mg HS PO 08/10/24 22:00 Exam Vital Signs Vital Signs Date Time Temp Pulse Resp B/P (MAP) Pulse Ox O2 Delivery O2 Flow Rate FiO2 08/10/24 05:00 97.7 69 18 160/86 (110) 96 97.7 08/10/24 00:50 Room Air* 0 21 Exam Physical Examination Constitutional: Patient was alert and oriented to time, place and person and appears to be in no acute distress. Gen - no pallor, no icterus, no cyanosis, no clubbing, no LAD, no edema . Skin - Patients skin is warm and dry. HEENT - normocephalic, atraumatic, moist mucous membranes. Neck - full ROM, no LAD, no JVD Pulmonary - B/L vesicular breath sounds. no crackles , no wheezing, no stridor. cardiovascular - normal S1,S2 heard. no murmurs heard. peripheral pulses radial 2+, pedal 2+. capillary refill normal <2 secs. GI - soft abdomen without tenderness to palpation . no hepatospleenomegaly. Bowel sounds normoactive Neurological - Bilateral upper extremity strength 5/5, bilateral lower extremity strength 5/5, no facial droop, normal speech, no tremor, no sensory deficiets. Labs/Xrays Labs Test 08/10/24 01:16 08/10/24 01:05 08/09/24 12:37 08/09/24 11:46 Range/Units Influenza Type A Antigen Negative Negative Influenza Type B Antigen Negative Negative SARS-CoV-2 Antigen (Rapid) Negative NEGATIVE Troponin I High Sensitivity < 3 L </=34 ng/L White Blood Count 8.1 4.4-10.8 10^3/uL Red Blood Count 5.06 4.0-5.20 10^6/uL Hemoglobin 15.4 12.2-16.2 g/dL Hematocrit 45.3 36.0-46.0 % Mean Corpuscular Volume 89.6 80.0-100.0 fL Mean Corpuscular Hemoglobin 30.4 28.0-32.0 pg Mean Corpuscular Hemoglobin Concent 34.0 32.0-36.0 g/dL Red Cell Distribution Width 13.5 11.8-14.3 % Platelet Count 338 140-450 10^3/uL Mean Platelet Volume 7.9 6.9-10.8 fL Neutrophils (%) (Auto) 55.9 37.0-80.0 % Lymphocytes (%) (Auto) 32.3 10.0-50.0 % Monocytes (%) (Auto) 9.2 0.0-12.0 % Eosinophils (%) (Auto) 1.9 0.0-7.0 % Basophils (%) (Auto) 0.7 0.0-2.0 % Neutrophils # (Auto) 4.5 1.6-8.6 10 ^3/uL Lymphocytes # (Auto) 2.6 0.4-5.4 10 ^3/uL Monocytes # (Auto) 0.7 0-1.3 10 ^3/uL Eosinophils # (Auto) 0.2 0-0.8 10 ^3/uL Basophils # (Auto) 0.1 0-0.2 10 ^3/uL Nucleated Red Blood Cells 0.0 % Sodium Level 141 136-145 mmol/L Potassium Level 4.3 3.5-5.1 mmol/L Chloride Level 109 H 98-107 mmol/L Carbon Dioxide Level 25 20-31 mmol/L Anion Gap 7 5-15 Blood Urea Nitrogen 10 9-23 mg/dL Creatinine 0.72 0.550-1.02 mg/dL Glomerular Filtration Rate Calc 95 >90 mL/min BUN/Creatinine Ratio 13.9 10.0-20.0 Serum Glucose 116 H 74-106 mg/dL Calcium Level 10.1 8.7-10.4 mg/dL Urine Color Colorless Yellow Urine Clarity Turbid H Clear Urine pH 5.5 5.0-9.0 Urine Specific [place] 1.003 1.001-1.035 Urine Protein Negative Negative Urine Ketones Negative Negative Urine Blood Negative Negative /uL Urine Nitrite Negative Negative Urine Bilirubin Negative Negative Urine Urobilinogen Normal Negative mg/dL Urine Leukocyte Esterase 3+ Negative /uL Urine RBC 2 0 - 4 /hpf Urine WBC 14 0 - 5 /hpf Urine Squamous Epithelial Cells Few <5 /hpf Urine Bacteria Few H None Seen /hpf Urine Glucose Normal Normal mg/dL Assessment/Plan Assessment/Plan Assessment # Acute chest pain ?Unstable angina # Hypertensive heart disease - 12 lead ECG showed sinus rhythm with prolonged NJ interval, no acute ST or T wave abnormalities - head CT showed no acute intracranial abnormalities - chest x-ray shows no acute cardiopulmonary abnormality - troponins trended and were under normal limits - atorvastatin 40 mg - aspirin 325 mg - Plavix 75 mg - on metoprolol tartrate 50 mg b.i.d. - on losartan 25 mg daily - cardiology consult pending # Asymptomatic bacteriuria - UA shows 3+ LE, few bacteria - no symptoms # generalized anxiety disorder - recommended psychotherapy Goals of care discussed with the patient and the for over 23 minutes. Full code Plan discussed with Dr. Turner Plan discussed with: Patient, Spouse My Orders Orders - TORIBIO LORENZ Procedure Category Date Status Time Admit ADMIT 08/09/24 Transmitted 22:57 Gerontological Nurse Practitioner For [facility] 08/09/24 In Process 24 Hours 22:57 Emergency Dysrhythmia [facility] 08/09/24 In Process Protocol 22:57 Metoprolol Tartrate PHA 08/10/24 In Process Tablet (Lopressor Ta 10:00 Chest Xray 1 View XY 08/09/24 Resulted 22:57 * Cardiology Consult CONS 08/10/24 Transmitted 04:10 Hydralazine Injection PHA 08/10/24 In Process (Apresoline Inject 04:15 Aspirin Tablet PHA 08/10/24 In Process 10:00 Atorvastatin (Lipitor) PHA 08/10/24 In Process 22:00 Complete Blood Count LAB 08/10/24 Logged 04:11 Comprehensive LAB 08/10/24 Logged Metabolic Panel 04:11 Thyroid Stimulating LAB 08/10/24 Logged Hormone 04:11 Hemoglobin A1c LAB 08/10/24 Logged 04:11 Lipid Panel LAB 08/10/24 Logged 04:11 Vitamin B12 LAB 08/10/24 Logged 04:11 Vitamin D, 25-Hydroxy LAB 08/10/24 Logged 04:11 Code Status CODE 08/10/24 Transmitted 05:13 Cardiac DIET 08/10/24 Transmitted Diet-2gna,Lofat,Lochol Breakfast Date of Service: Aug 09, 2024 Billing Provider: BALA TURNER MD Common Visit Codes: [id number] INP/OBS CARE (HIGH) TORIBIO LORENZ RESIDENT Aug 10, 2024 06:17 BALA TURNER MD Aug 10, 2024 11:17
[2024-08-10] MEDS: LOSARTAN POTASSIUM 25 MG TAB PO SCH (09:37)
[2024-08-10] MEDS: ASPirin 81 mg TAB PO SCH (09:38)
[2024-08-10] MEDS: METOPROLOL TARTRATE 50 MG TAB PO SCH (09:38)
[2024-08-10 09:42] LABS: Basophils # (auto) 0.1 10 ^3/uL (0-0.2); Basophils % (auto) 0.6 % (0.0-2.0); Eosinophils # (auto) 0.2 10 ^3/uL (0-0.8); Eosinophils % (auto) 1.9 % (0.0-7.0); Hematocrit 42.9 % (36.0-46.0); Hemoglobin 14.7 g/dL (12.2-16.2); Lymphocytes # (auto) 2.2 10 ^3/uL (0.4-5.4); Lymphocytes % (auto) 24.4 % (10.0-50.0); Mean Corpuscular Hemoglobin 30.3 pg (28.0-32.0); Mean Corpuscular Hgb Conc. 34.2 g/dL (32.0-36.0); Mean Corpuscular Volume 88.6 fL (80.0-100.0); Monocytes # (auto) 0.6 10 ^3/uL (0-1.3); Monocytes % (auto) 6.2 % (0.0-12.0); Neutrophils # (auto) 6.2 10 ^3/uL (1.6-8.6); Neutrophils % (auto) 66.9 % (37.0-80.0); Platelet Count (auto) 301 10^3/uL (140-450); Red Blood Cells 4.84 10^6/uL (4.0-5.20); Red Cell Distribution Width 13.5 % (11.8-14.3); White Blood Cell 9.2 10^3/uL (4.4-10.8)
[2024-08-10 09:54] LABS: Alanine Aminotransferase 34 U/L (7-40); Albumin 4.3 g/dL (3.2-4.8); Alkaline Phosphatase 87 U/L (46-116); Anion Gap 10 (5-15); Aspartate Aminotransferase 23 U/L (13-40); BUN/Creatinine Ratio 14.9 (10.0-20.0); Blood Urea Nitrogen 10 mg/dL (9-23); Calcium 9.6 mg/dL (8.7-10.4); Carbon Dioxide 23 mmol/L (20-31); Chloride 107 mmol/L (98-107); Cholesterol 146 mg/dL (< 200); HDL Cholesterol 57 mg/dL (40-59); LDL Cholesterol 73 mg/dL (< 100); Potassium 3.9 mmol/L (3.5-5.1); Sodium 140 mmol/L (136-145); Triglycerides 109 mg/dL (< 150)
[2024-08-10 09:55] LABS: Bilirubin, Total 0.8 mg/dL (0.2-1.0); Total Protein 6.6 g/dL (5.7-8.2)
[2024-08-10 10:04] LABS: Glucose 149 mg/dL (74-106)
[2024-08-10] MEDS ORDERED: NITROGLYCERIN 0.4 MG SL TAB SL PRN (11:30)
--- NOTE | 2024-08-10 11:34 | DVHPN2 ---
Progress Note - Dictate Date Seen: Aug 10, 2024 Medical Necessity Reason Pt with a Central, PICC or Fol: No vital signs Vital Sign Date Time Temp Pulse Resp B/P (MAP) Pulse Ox O2 Delivery O2 Flow Rate FiO2 08/10/24 10:38 85 134/73 08/10/24 09:00 97.4 16 97 97.4 08/10/24 04:20 Room Air* 0 21 Total Intake and Output 08/09/24 08/09/24 08/10/24 15:00 23:00 07:00 Intake Total 0 ml Balance 0 ml medications Current Medications Medications Dose Ordered Sig/Mi Route Start Time Stop Time Status Last Admin Dose Admin Metoprolol Tartrate 50 mg BID PO 08/10/24 10:00 08/10/24 09:38 50 MG Hydralazine HCl 10 mg Q6HP PRN IV 08/10/24 04:15 Aspirin 81 mg DAILY PO 08/10/24 10:00 08/10/24 09:38 81 MG Atorvastatin Calcium 40 mg HS PO 08/10/24 22:00 Losartan Potassium 25 mg DAILY PO 08/10/24 10:00 08/10/24 09:37 25 MG objective General Appearance: alert, no distress HEENT: EOMI, PERRLA, normal external inspect of ears, no icterus, no nasal drainage Neck: no carotid bruit, no jugular venous distention (JVD), no lymphadenopathy Chest: normal thorax Respiratory: clear to auscultation, normal air movement Cardiovascular: regular rate and rhythm, no diastolic murmur, no jugular venous distention (JVD), no rub, no systolic murmur Abdominal: soft, no hepatomegaly, no mass, no splenomegaly, no tenderness Genitourinary: grossly normal external Musculoskeletal: no joint tenderness, no swelling Extremities: normal pulses, no calf tenderness, no clubbing, no cyanosis, no edema Skin: no bruising, no jaundice, no rash Neurological: alert, No focal deficit laboratory and microbiology Laboratory Tests 08/10/24 09:30 Test 08/10/24 09:30 Range/Units Serum Glucose 149 H 74-106 mg/dL Problem List 1. Acute chest pain Monitor, cardiology consult, echocardiogram, monitor EKG, trend troponin 2. HLD Monitor, lipid panel 3. Hypertensive heart disease Monitor, antihypertensives Assessment/Plan Subjective: Patient is awake and alert. Objective: Patient was admitted on 08/09/2024 for chest pain. Troponin levels are negative. Patient had a recent outpatient stress test from her horse rider which showed no acute findings. EKG showed no changes. Cardiology was consulted. Patient no longer has chest pain. Plan: Discharge planning once cleared by cardiology. Plan discussed with: Patient, Other CHADD HILL NP Aug 10, 2024 11:34
--- NOTE | 2024-08-10 18:43 | DVHSR ---
APPROVED REPORT EXAM: Two-dimensional and M-mode echocardiogram with Doppler and color Doppler. Blood Pressure: 136/72 mmHg INDICATION Chest Pain RISK FACTORS Height: 5'5", Weight: 168 DIMENSIONS LVDd4.4 (3.8-5.7cm)LA (2D)3.8 (1.9-4.0cm)Aortic Root3.0 (2.0-3.7cm) LVDs3.1 (2.5-4.0cm)LA (MM) (1.9-4.0cm)Aortic Cusp Exc1.8 (1.5-2.0cm) EF (%) 55.0 (55-70%)Rt. Atrium3.6 (1.9-4.0cm)Asc. Aorta3.2 cm IVSd0.8 (0.7-1.1cm)RV (D)3.0 (1.8-2.4cm) PWd0.9 (0.7-1.1cm) Mitral Valve MitralMitral Stenosis E wave0.79m/sMV Mean GR.mmHg A wave0.81m/sMV Peak GR.mmHg E/A ratio1.02D MVAcm2 DECEL [id number] 1/2 Timems Aortic Valve Aortic ValveAortic Stenosis V10.90m/Bony Mean GR.3mmHg V21.07m/Bony Peak GR.5mmHg LVOT Diameter2.1 (1.8-2.4cm)Doppler AVA2.91cm2 Pulmonic Valve V21.00m/s Tricuspid Valve TR Velocity2.33m/s [id number] Conclusion Left ventricle: Left ventricle was normal-sized with normal systolic function. There was no gross w all motion abnormality. LVEF was 55-60%. Diastolic function of left ventricle was considered normal. Right ventricle was normal-sized with normal systolic function. Both Atria were normal-sized. Aortic valve: Aortic valve was trileaflet. There was trivial aortic insufficiency. There was no ao rtic stenosis. There was trivial mitral/tricuspid regurgitation. There was trivial pulmonary valve insufficiency. Right ventricular systolic pressure was assessed at 33 mm Hg. There was no pericardial effusion.
--- NOTE | 2024-08-10 19:44 | DVHINCON2 ---
Date of service: Aug 10, 2024 History of Present Illness HPI 59-year-old female presented to the hospital with few days of facial numbness/chest discomfort/headache and nausea. She has been experiencing chest discomfort going back for few months. Cardiology was involved for cardiac aspects of care. Patient is known to our practice from outside and before. She does have some anxiety. She did have a nuclear stress test in July 06, 2024 which reported fixed defect but no ischemia. Home Meds Active Scripts Naproxen Sodium (ALEVE ARTHRITIS) 220 Mg Tab, 220 MG PO BID for 10 Days, #20 TAB Prov:ROSEMARIE HOLDEN MD 07/27/24 Olmesartan Medoxomil (Olmesartan Medoxomil) 40 Mg Tab, 20 MG PO DAILY for 30 Days, #30 TAB Prov:ROSEMARIE HOLDEN MD 07/27/24 Ciprofloxacin Hcl (Cipro) 500 Mg Tab, 1 TAB PO BID for 10 Days, #20 TAB Prov:ROSEMARIE HOLDEN MD 07/27/24 Alprazolam (Xanax) 0.25 Mg Tb, 1 TAB PO DAILY PRN for 3 Days, #3 TAB Prov:DIANE SOMERS MD 05/22/24 Ibuprofen Micronized (MOTRIN TABLET) 600 Mg Tb, 600 MG PO TID PRN, #40 TAB *Black box warning-NSAIDS can increase risk of NM & hypertension, GI irritation, ulceration, bleed, perferation. Do not use post cardiac surgery. Use short duration/lowest effective dose. Prov:DIANE SOMERS MD 05/22/24 Reported Medications Alendronate Sodium (Alendronate Sodium) 70 Mg Tab, 1 TAB PO QWEEKLY for 28 Days, #4 08/10/24 Aspirin (Aspir-81) 81 Mg Tab, 1 TAB PO DAILY, #30 TAB 5 Refills 08/10/24 Calcium Carbonate-Cholecalcife (Oyster Calcium/D3 500-200 mg-Unit) 1 Tab Tab 08/10/24 Simvastatin (Simvastatin) 20 Mg Tab, 1 TAB PO DAILY 08/10/24 Losartan Potassium (Losartan Potassium) 25 Mg Tab, 1 TAB PO DAILY 08/10/24 Metoprolol Tartrate (LOPRESSOR TABLET) 50 Mg Tb, TAB PO 08/10/24 Past Medical History Others Past medical history includes hypertension, hyperlipidemia, history of SVT, questionable sleep apnea, old history of hysterectomy/tonsillectomy. Brother had pacemaker in 40s. Two of her kids had ASD. Patient Family History: ASD (atrial septal defect) 19 CHILD 19 CHILD Cardiovascular disease G8 BROTHER FH: heart attack G8 FATHER Smoker: No Hx (Negative) Alocohol: None Drugs: None Lives with: With family Review of Systems Constitutional: No symptom reported Ears, Nose, & Throat: No symptom reported Pulmonary/Respiratory: No symptom reported Cardiovascular: Chest Pain, Palpitations Gastrointestinal: Nausea All Other Systems Fourteen point review of system was performed. Relevant findings as per above and as per HPI. Otherwise negative. H&P Exam Vital Signs Vital Signs Date Time Temp Pulse Resp B/P (MAP) Pulse Ox O2 Delivery O2 Flow Rate FiO2 08/10/24 17:00 98.1 85 16 147/77 (100) 93 98.1 08/10/24 08:00 Room Air* 0 21 General Appeara: Well developed, Well nourished Head Exam: Normal inspection Eye Exam: bilateral eye PERRL Nasal Exam: Normal inspection Mouth: Normal Inspection Pulmonary/Respiratory: Normal inspection, Lungs clear Cardiovascular/Chest: Normal inspection, Regular rate Peripheral Pulses: 2+ carotid (R), 2+ carotid (L), 2+ femoral (R), 2+ femoral (L), 2+ dorsalis pedis (R), 2+ dorsalis pedis (L), 2+ Radial (R), 2+ Radial (L) Abdominal Exam: Normal bowel sounds, Soft, No tenderness, No hepatospenomegaly Neuro/Mental St: Alert, Oriented Appearance: Appropriate appearance Eye contact/ Speech: Cooperative Labs/Xrays Labs Test 08/10/24 09:30 08/10/24 01:16 08/10/24 01:05 08/09/24 11:46 Range/Units White Blood Count 9.2 4.4-10.8 10^3/uL Red Blood Count 4.84 4.0-5.20 10^6/uL Hemoglobin 14.7 12.2-16.2 g/dL Hematocrit 42.9 36.0-46.0 % Mean Corpuscular Volume 88.6 80.0-100.0 fL Mean Corpuscular Hemoglobin 30.3 28.0-32.0 pg Mean Corpuscular Hemoglobin Concent 34.2 32.0-36.0 g/dL Red Cell Distribution Width 13.5 11.8-14.3 % Platelet Count 301 140-450 10^3/uL Mean Platelet Volume 7.7 6.9-10.8 fL Neutrophils (%) (Auto) 66.9 37.0-80.0 % Lymphocytes (%) (Auto) 24.4 10.0-50.0 % Monocytes (%) (Auto) 6.2 0.0-12.0 % Eosinophils (%) (Auto) 1.9 0.0-7.0 % Basophils (%) (Auto) 0.6 0.0-2.0 % Neutrophils # (Auto) 6.2 1.6-8.6 10 ^3/uL Lymphocytes # (Auto) 2.2 0.4-5.4 10 ^3/uL Monocytes # (Auto) 0.6 0-1.3 10 ^3/uL Eosinophils # (Auto) 0.2 0-0.8 10 ^3/uL Basophils # (Auto) 0.1 0-0.2 10 ^3/uL Nucleated Red Blood Cells 0.0 % Sodium Level 140 136-145 mmol/L Potassium Level 3.9 3.5-5.1 mmol/L Chloride Level 107 98-107 mmol/L Carbon Dioxide Level 23 20-31 mmol/L Anion Gap 10 5-15 Blood Urea Nitrogen 10 9-23 mg/dL Creatinine 0.67 0.550-1.02 mg/dL Glomerular Filtration Rate Calc 99 >90 mL/min BUN/Creatinine Ratio 14.9 10.0-20.0 Serum Glucose 149 H 74-106 mg/dL Hemoglobin A1c 5.6 <5.7 % A1C Calcium Level 9.6 8.7-10.4 mg/dL Total Bilirubin 0.8 0.2-1.0 mg/dL Aspartate Amino Transferase (AST) 23 13-40 U/L Alanine Aminotransferase (ALT) 34 7-40 U/L Alkaline Phosphatase 87 46-116 U/L Total Protein 6.6 5.7-8.2 g/dL Albumin 4.3 3.2-4.8 g/dL Triglycerides Level 109 < 150 mg/dL Cholesterol Level 146 < 200 mg/dL LDL Cholesterol 73 < 100 mg/dL HDL Cholesterol 57 40-59 mg/dL Vitamin B12 Level 632 211-911 pg/mL Vitamin D 25-Hydroxy 25.0 L 30.0-100 ng/mL Thyroid Stimulating Hormone (TSH) 1.71 0.55-4.78 uIU/mL Influenza Type A Antigen Negative Negative Influenza Type B Antigen Negative Negative SARS-CoV-2 Antigen (Rapid) Negative NEGATIVE Troponin I High Sensitivity < 3 L </=34 ng/L Urine Color Colorless Yellow Urine Clarity Turbid H Clear Urine pH 5.5 5.0-9.0 Urine Specific [place] 1.003 1.001-1.035 Urine Protein Negative Negative Urine Ketones Negative Negative Urine Blood Negative Negative /uL Urine Nitrite Negative Negative Urine Bilirubin Negative Negative Urine Urobilinogen Normal Negative mg/dL Urine Leukocyte Esterase 3+ Negative /uL Urine RBC 2 0 - 4 /hpf Urine WBC 14 0 - 5 /hpf Urine Squamous Epithelial Cells Few <5 /hpf Urine Bacteria Few H None Seen /hpf Urine Glucose Normal Normal mg/dL Assessment/Plan Plan 59-year-old female presented to the hospital with few days of facial numbness/chest discomfort/headache and nausea. She has been experiencing chest discomfort going back for few months. She occasionally feels palpitations also. Cardiology was involved for cardiac aspects of care. Patient is known to our practice from outside and before. She does have some anxiety. She did have a nuclear stress test in July 06, 2024 which reported fixed defect but no ischemia. Not in acute distress. No JVD. Mucosa is pink and wet. There is no carotid bruit. No goiter. Not using accessory muscles of breathing. Lungs are clear to auscultation. Cardiac: Regular, no thrill/gallop. Abdomen is soft. Bowel sound is positive. There is no gross mass/hepatomegaly. Extremities do not reveal edema. Dorsalis pedis is 2+ bilateral Past medical history includes hypertension, hyperlipidemia, history of SVT, questionable sleep apnea, old history of hysterectomy/tonsillectomy. Brother had pacemaker in 40s. Two of her kids had ASD. Echocardiogram of July 08, 2024 (performed in the office) revealed ejection fraction of 65-70%, no wall motion abnormality, trace MR, mild TR and right ventricular systolic pressure of 40 mm Hg. Nuclear stress test of July 06, 2024 (performed in the office) had reported fixed defect in inferolateral/inferior/inferoseptal yen. There was no ischemia and ejection fraction was 63% Creatinine: 0.72 - 0.67 Potassium: 4.3 - 3.9 Troponin (high sensitive): <3 - <3 - <3 TSH: 1.71 Chest x-ray revealed: IMPRESSION: No acute cardiopulmonary abnormality. CT of the head revealed: IMPRESSION: No acute intracranial abnormality. EKG revealed sinus rhythm with no ST-T changes Tele reveals sinus rhythm Echocardiogram reported: Left ventricle: Left ventricle was normal-sized with normal systolic function. There was no gross wall motion abnormality. LVEF was 55-60%. Diastolic function of left ventricle was considered normal. Right ventricle was normal-sized with normal systolic function. Both Atria were normal-sized. Aortic valve: Aortic valve was trileaflet. There was trivial aortic insufficiency. There was no aortic stenosis. There was trivial mitral/tricuspid regurgitation. There was trivial pulmonary valve insufficiency. Right ventricular systolic pressure was assessed at 33 mm Hg. There was no pericardial effusion. Patient is a 59-year-old female who presented to the hospital with chest pain/numbness in the face and arm/palpitations. Discomforts happens sometimes during rest sometimes during activity. There has been no increasing/decreasing factors. High sensitive/serial troponin has been negative. Echocardiogram has been nonrevealing and also revealed normal diastolic function. Acute coronary syndrome is not considered at this point. Does have history of SVT as outpatient which could have contributed to the palpitations. She also has history of anxiety which makes her more anxious with discomforts and could have contributed to the clinical picture. Atypical chest pain SVT Hypertension Hyperlipidemia Questionable obstructive sleep apnea Questionable old myocardial infarction (as per outside nuclear stress test) Cardiac suggestion for management: Managed on telemetry Follow-up electrolytes and kidney function tests and correct abnormalities Lifestyle and risk factor modifications Cardiac-palmer, the patient can be followed as outpatient Thank you for consultation A total of 75 minutes was spent reviewing the patient record, examining the patient, making a diagnostic and therapeutic plan, discussing this plan with medical personnel, following up on diagnostic studies and following the patient for clinical stability excluding any and all procedures. At least 50% of this time was spent in direct, [id number] contact. Thank you for allowing me to participate in this patient's care. Further recommendations will depend on patient's clinical course. Please do not hesitate to contact me if you have any questions or concerns. This medical document was created using electronic medical record system with [employer] dictation system. Although this document has been carefully reviewed, there may still be some phonetic and typographical errors. These areas are purely typographical due to the imperfection of the software programs, and do not reflect any compromise in the patient's medical care. Plan discussed with: Patient, Spouse (at bedside), Other (nurse) DAQUAN TOUSSAINT MD Aug 10, 2024 19:44
[2024-08-10] MEDS ORDERED: ATORVASTATIN 20 MG TAB PO SCH (22:00)
[2024-08-11] MEDS ORDERED: FAMOTIDINE 20 MG TAB PO SCH (10:00)
--- NOTE | 2024-08-11 12:50 | ECG ---
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
== END 2024-08-10 20:50 | disposition home or self-care (01) | DRG 313 ==
LOC: ER 11:28 → TELE 22:57 → TELE-E-ADS 08-10 04:15
PROVIDERS: ATTEND Specialist
DX: R07.89 Other chest pain (principal); I47.10 Supraventricular tachycardia, unspecified; I11.9 Hypertensive heart disease without heart failure; F41.9 Anxiety disorder, unspecified; Z20.822 Contact with and (suspected) exposure to COVID-19; E78.5 Hyperlipidemia, unspecified; I25.10 Atherosclerotic heart disease of native coronary artery without angina pectoris; I25.2 Old myocardial infarction; Z79.82 Long term (current) use of aspirin; Z79.899 Other long term (current) drug therapy; Z87.891 Personal history of nicotine dependence; Z90.710 Acquired absence of both cervix and uterus; Z88.0 Allergy status to penicillin; Z88.8 Allergy status to other drugs, medicaments and biological substances
CPT/HCPCS: 36415; 70450; 71045; 80048; 80053; 80061; 81001; 82306; 82607; 83036; 84443; 84484; 85025; 87426; 87804; 93306; 99291; G0378